=== PATIENT | female | born 1950 | race Caucasian/White ===

== ENCOUNTER 2016-12-19 02:11 | Emergency (ER) | payer OTHER, SELFPAY ==
[2016-12-19 02:21] VITALS: PULSE 101; RESP 20; TEMP 98.1; O2SAT 98
--- NOTE | 2016-12-19 02:25 | C.PDOC ---
History Of Present Illness Patient presents to the emergency room with complaints of mid-epigastric pain, nausea, and vomiting after eating at 5pm. Patient describes the pain as a dull, aching, and throbbing sensation. Patient denies fever, chills, diarrhea, or any other complaints. Time Seen by Provider: 12/19/16 02:24 Chief Complaint (Nursing): Abdominal Pain History Per: Patient History/Exam Limitations: no limitations Onset/Duration Of Symptoms: Hrs (9) Current Symptoms Are (Timing): Still Present Context: Food Severity: Moderate Location Of Pain/Discomfort: Epigastric Radiation Of Pain To:: None Quality Of Discomfort: Dull, Aching, Stabbing Associated Symptoms: Nausea, Vomiting. denies: Fever, Chills, Diarrhea Exacerbating Factors: None Alleviating Factors: None Recent travel outside of the [place]: No Past Medical History Reviewed: Historical Data, Nursing Documentation, Vital Signs Vital Signs: Last Vital Signs Temp 98.1 F 12/19/16 02:19 Pulse 101 H 12/19/16 02:19 Resp 20 12/19/16 02:19 BP 153/91 H 12/19/16 02:19 Pulse Ox 98 12/19/16 02:33 - Medical History PMH: HTN Family History: States: No Known Family Hx - Social History Hx Tobacco Use: No Hx Alcohol Use: No Hx Substance Use: No - Immunization History Hx Tetanus Toxoid Vaccination: No Hx Influenza Vaccination: No Hx Pneumococcal Vaccination: No Review Of Systems Constitutional: Negative for: Fever, Chills Gastrointestinal: Positive for: Nausea, Vomiting, Abdominal Pain (Mid-epigastric ). Negative for: Diarrhea Physical Exam - Physical Exam Appears: Non-toxic Skin: Warm, Dry Cardiovascular: Rhythm Regular Respiratory: No Rales, No Rhonchi, No Wheezing Gastrointestinal/Abdominal: Soft, Tenderness (Mid-epigastric tenderness), No Guarding, No Rebound Extremity: Normal ROM, No Tenderness Neurological/Psych: Oriented x3, Normal Speech ED Course And Treatment - Laboratory Results Result Diagrams: 12/19/16 02:37 12/19/16 02:37 O2 Sat by Pulse Oximetry: 98 Medical Decision Making Medical Decision Making: Upon provider reevaluation patient is feeling better, is medically stable, and requires no further treatment in the ED at this time. Patient will be discharged home with Rx for zofran . Counseling was provided and all questions were answered regarding diagnosis and need for follow up with dr andre. There is agreement to discharge plan. Return if symptoms persist or worsen. Disposition Counseled Patient/Family Regarding: Studies Performed, Diagnosis, Need For Followup, Rx Given - Disposition Referrals: Peter Waters [Staff Provider] - Disposition: HOME/ ROUTINE Disposition Time: 02:25 Condition: FAIR Prescriptions: Ondansetron ODT [Zofran ODT] 1 odt PO BID PRN #10 odt PRN Reason: Nausea/Vomiting Instructions: Abdominal Pain (ED), Gas and Bloating (ED) Print Language: KAZAKH - Clinical Impression Clinical Impression: Abdominal pain, Nausea, Food poisoning - Scribe Statement The provider has reviewed the documentation as recorded by the Juancarlos Neri Provider Scribe Attestation: All medical record entries made by the Juancarlos were at my direction and personally dictated by me. I have reviewed the chart and agree that the record accurately reflects my personal performance of the history, physical exam, medical decision making, and the department course for this patient. I have also personally directed, reviewed, and agree with the discharge instructions and disposition.
[2016-12-19] MEDS ORDERED: Sodium Chloride 0.9% 1,000 ML IV ONE (02:27)
[2016-12-19 02:40] LABS: BASO # 0.1 K/uL (0.0-0.2); BASO % 1.1 % (0.0-2.0); EOS # 0.1 K/uL (0.0-0.7); EOS % 1.3 % (0.0-4.0); HEMATOCRIT 40.7 % (34.0-47.0); LYMPH # 2.4 K/uL (1.0-4.3); MEAN CELL VOLUME 87.6 fL (81.0-99.0); MEAN CORPUSCULAR HEMOGLOBIN 28.4 pg (27.0-31.0); MEAN CORPUSCULAR HGB CONC 32.4 g/dL (33.0-37.0); MEAN PLATELET VOLUME 8.3 fL (7.2-11.7); MONO # 0.6 K/uL (0.0-0.8); MONO % 8.1 % (0.0-10.0); RED CELL DISTRIBUTION WIDTH 12.7 % (11.5-14.5); WHITE BLOOD COUNT 7.1 K/uL (4.8-10.8)
[2016-12-19 02:55] LABS: INR 0.9
[2016-12-19 02:58] LABS: CHLORIDE 104 mmol/L (98-107); SODIUM 142 mmol/L (132-148)
[2016-12-19 02:59] LABS: POTASSIUM 3.9 mmol/L (3.6-5.2)
[2016-12-19 02:59] LABS: RBC URINE 7 /hpf (0-3); URINE BILIRUBIN NEGATIVE (NEGATIVE); URINE BLOOD NEGATIVE (NEGATIVE); URINE COLOR Yellow (YELLOW); URINE GLUCOSE (UA) NORMAL (Normal); URINE KETONE NEGATIVE (NEGATIVE); URINE PROTEIN NEGATIVE (NEGATIVE); URINE UROBILINOGEN NORMAL mg/dL (0.2-1.0); WBC URINE 6 /hpf (0-5)
[2016-12-19 03:01] LABS: URINE LEUKOCYTE ESTERASE 1+ Leu/uL (Negative)
[2016-12-19 03:01] LABS: ALB/GLOB RATIO 1.5 (1.0-2.1); ALKALINE PHOSPHATASE 81 U/L (38-126); ALT/SGPT 27 U/L (9-52); AST/SGOT 23 U/L (14-36); BILIRUBIN,TOTAL 0.4 mg/dL (0.2-1.3); BLOOD UREA NITROGEN 15 mg/dL (7-17); CARBON DIOXIDE 28 mmol/L (22-30); GFR AFRICAN-AMERICAN > 60; GLUCOSE,RANDOM 111 mg/dL (65-105); TOTAL PROTEIN 6.4 g/dL (6.3-8.3)
[2016-12-19 03:02] LABS: CALCIUM 8.4 mg/dl (8.6-10.4)
[2016-12-19 04:50] VITALS: BP 134/70
== END 2016-12-19 04:49 | disposition home or self-care (01) ==
LOC: C.ER 02:11
DX: T62.91XA Toxic effect of unspecified noxious substance eaten as food, accidental (unintentional), initial encounter (principal); R11.2 Nausea with vomiting, unspecified; R10.13 Epigastric pain; Y92.9 Unspecified place or not applicable
CPT/HCPCS: 80053; 81001; 83690; 85025; 85610; 85730; 96374; 96375; 99284; J1885; J2405; J7040

== ENCOUNTER 2017-03-27 19:33 | Emergency (ER) | payer OTHER ==
[2017-03-27 19:48] VITALS: TEMP 97.5
[2017-03-27] MEDS ORDERED: Sodium Chloride 0.9% 1,000 ML IV ONE (19:55)
--- NOTE | 2017-03-27 19:57 | C.PDOC ---
History Of Present Illness 66 year old female with a Hx of anxiety who presents to the ER with a complaint of persistent anterior chest wall pain since 15:00. Denies SOB, nausea, or vomiting. Chief Complaint (Nursing): Chest Pain History Per: Patient History/Exam Limitations: no limitations Onset/Duration Of Symptoms: Hrs, Persistent Current Symptoms Are (Timing): Still Present Associated Symptoms: denies: Nausea, Dyspnea, Diaphoresis Modifying Factors: None Exacerbating Factors: None Alleviating Factors: None Recent travel outside of the [place]: No Past Medical History Reviewed: Historical Data, Nursing Documentation, Vital Signs Vital Signs: Last Vital Signs Temp 97.5 F L 03/27/17 19:44 Pulse 77 03/27/17 19:44 Resp 14 03/27/17 19:44 BP 157/78 H 03/27/17 19:44 Pulse Ox 100 03/27/17 21:40 - Medical History PMH: HTN Surgical History: No Surg Hx Family History: States: Unknown Family Hx - Social History Hx Tobacco Use: No Hx Alcohol Use: No Hx Substance Use: No - Immunization History Hx Tetanus Toxoid Vaccination: No Hx Influenza Vaccination: No Hx Pneumococcal Vaccination: No Review Of Systems Constitutional: Negative for: Fever, Chills Cardiovascular: Positive for: Chest Pain (Anterior wall) Respiratory: Negative for: Shortness of Breath Gastrointestinal: Negative for: Nausea, Vomiting Physical Exam - Physical Exam Appears: Non-toxic, No Acute Distress Skin: Normal Color, Warm, Dry Head: Atraumatic, Normacephalic Oral Mucosa: Moist Chest: Symmetrical, No Tenderness Cardiovascular: Rhythm Regular, No Murmur Respiratory: Normal Breath Sounds, No Rales, No Rhonchi, No Wheezing Gastrointestinal/Abdominal: Soft, No Tenderness Neurological/Psych: Oriented x3, Normal Speech, Normal Cognition ED Course And Treatment - Laboratory Results Result Diagrams: 03/27/17 20:14 03/27/17 20:14 ECG: Interpreted By Me, Viewed By Me ECG Rhythm: Sinus Rhythm ECG Interpretation: No Acute Changes Interpretation Of ECG: NSR, IRBBB, no acute change, borderline tracings Rate From EC O2 Sat by Pulse Oximetry: 100 Pulse Ox Interpretation: Normal - Radiology CXR: Interpreted by Me CXR Interpretation: Yes: No Acute Disease, Other (normal chest film). No: Infiltrates Progress Note: EKG, blood work, and CXR ordered. Ativan and IV fluids administered. Disposition Counseled Patient/Family Regarding: Diagnosis - Disposition Referrals: Peter Waters [Staff Provider] - Disposition: HOME/ ROUTINE Disposition Time: 21:49 Condition: STABLE Prescriptions: ALPRAZolam HALF TABLET [Xanax HALF TABLET] 0.125 mg PO TID #7 tab Instructions: Noncardiac Chest Pain (ED), Anxiety (ED) Forms: [employer] (Zimbabwean), Gen Discharge Inst Emirati Print Language: VIETNAMESE - POA Present On Arrival: None - Clinical Impression Clinical Impression: Non-cardiac chest pain, Anxiety - Scribe Statement The provider has reviewed the documentation as recorded by the Scribjosé miguel Lima All medical record entries made by the Christophibjosé miguel were at my direction and personally dictated by me. I have reviewed the chart and agree that the record accurately reflects my personal performance of the history, physical exam, medical decision making, and the department course for this patient. I have also personally directed, reviewed, and agree with the discharge instructions and disposition.
[2017-03-27 20:28] LABS: BASO % 0.6 % (0.0-2.0); EOS # 0.1 K/uL (0.0-0.7); EOS % 0.7 % (0.0-4.0); HEMATOCRIT 44.1 % (34.0-47.0); LYMPH # 2.3 K/uL (1.0-4.3); LYMPH % 29.5 % (20.0-40.0); MEAN CELL VOLUME 87.8 fL (81.0-99.0); MEAN CORPUSCULAR HEMOGLOBIN 29.3 pg (27.0-31.0); MEAN CORPUSCULAR HGB CONC 33.4 g/dL (33.0-37.0); MEAN PLATELET VOLUME 8.7 fL (7.2-11.7); MONO # 0.5 K/uL (0.0-0.8); MONO % 6.9 % (0.0-10.0); RED CELL DISTRIBUTION WIDTH 13.1 % (11.5-14.5); WHITE BLOOD COUNT 7.9 K/uL (4.8-10.8)
[2017-03-27 20:39] LABS: CHLORIDE 98 mmol/L (98-107); POTASSIUM 3.6 mmol/L (3.6-5.2); SODIUM 140 mmol/L (132-148)
[2017-03-27 20:41] LABS: BILIRUBIN,TOTAL 0.8 mg/dL (0.2-1.3); GFR AFRICAN-AMERICAN > 60
[2017-03-27 20:42] LABS: ALB/GLOB RATIO 1.4 (1.0-2.1); ALKALINE PHOSPHATASE 78 U/L (38-126); ALT/SGPT 30 U/L (9-52); AST/SGOT 23 U/L (14-36); BLOOD UREA NITROGEN 9 mg/dL (7-17); CARBON DIOXIDE 25 mmol/L (22-30); GLUCOSE,RANDOM 96 mg/dL (65-105)
[2017-03-27 20:43] LABS: CALCIUM 9.3 mg/dl (8.6-10.4)
[2017-03-27 22:33] VITALS: BP 142/78; PULSE 82; RESP 78; O2SAT 16
--- NOTE | 2017-03-28 09:56 | RAD ---
HISTORY: COMPARISON: No prior. TECHNIQUE: Chest PA and lateral FINDINGS: LINES AND TUBES: There is mild pulmonary hyperinflation and peribronchial thickening. No lobar pneumonia. LUNG AND PLEURA: Lungs are clear. There are no pleural effusions or pneumothorax. HEART AND MEDIASTINUM: The heart is not enlarged. The hilar and mediastinal contours are within normal limits. SKELETAL STRUCTURES: The bony structures are within normal limits for the patient's age. VISUALIZED UPPER ABDOMEN: Normal. OTHER FINDINGS: None. IMPRESSION: No active pulmonary disease. COPD.
--- NOTE | 2017-04-02 11:18 | CARD ---
APPROVED REPORT EKG Measurement Heart [id number] <Conclusion> Normal sinus rhythm Possible Left atrial enlargement Borderline ECG
== END 2017-03-27 21:55 | disposition home or self-care (01) ==
LOC: C.ER 19:33
DX: R07.89 Other chest pain (principal); F41.9 Anxiety disorder, unspecified
CPT/HCPCS: 71020; 80053; 84484; 85025; 85378; 99285; J7040

== ENCOUNTER 2017-03-28 16:26 | Emergency (ER) | payer OTHER ==
[2017-03-28 16:45] VITALS: BP 141/84; RESP 18; TEMP 97.9; O2SAT 98
[2017-03-28 17:24] VITALS: PULSE 75
--- NOTE | 2017-03-28 18:15 | C.PDOC ---
History Of Present Illness 66 year old female presents to the emergency department with complaints of vague left chest discomfort but is asymptomatic on arrival. Patient was seen in the emergency department yesterday with the same complaint and had a normal cardiac work up. She notes use of anxiety medications with improvement of symptoms. Time Seen by Provider: 03/28/17 18:07 Chief Complaint (Nursing): Chest Pain History Per: Patient Onset/Duration Of Symptoms: Intermittent Episodes (of left chest discomfort, asymptomatic on arrival ) Current Symptoms Are (Timing): Still Present Associated Symptoms: denies: Nausea, Dyspnea, Diaphoresis, Syncope Recent travel outside of the [place]: No Past Medical History Reviewed: Historical Data, Nursing Documentation, Vital Signs Vital Signs: Last Vital Signs Temp 97.9 F 03/28/17 16:45 Pulse 75 03/28/17 17:22 Resp 18 03/28/17 16:45 BP 141/84 03/28/17 16:45 Pulse Ox 98 03/28/17 20:44 - Medical History PMH: HTN, Hypercholesterolemia Family History: States: Unknown Family Hx - Social History Hx Tobacco Use: No Hx Alcohol Use: No Hx Substance Use: No - Immunization History Hx Tetanus Toxoid Vaccination: No Hx Influenza Vaccination: No Hx Pneumococcal Vaccination: No Review Of Systems Constitutional: Negative for: Fever, Chills Cardiovascular: Positive for: Other (vague left chest discomfort ). Negative for: Palpitations Respiratory: Negative for: Cough, Shortness of Breath Gastrointestinal: Negative for: Nausea, Vomiting, Abdominal Pain, Diarrhea Physical Exam - Physical Exam Appears: Non-toxic, No Acute Distress, Other (Patient is calm and cooperative ) Skin: Warm, Dry Head: Atraumatic Eye(s): bilateral: Normal Inspection, PERRL, EOMI Oral Mucosa: Moist Neck: Supple Chest: Symmetrical, No Deformity Cardiovascular: Rhythm Regular Respiratory: Normal Breath Sounds, No Rhonchi, No Wheezing Gastrointestinal/Abdominal: Soft, No Tenderness, No Distention, No Guarding, No Rebound Neurological/Psych: Oriented x3 ED Course And Treatment ECG Rhythm: Sinus Rhythm (normal sinus rhythm 75) O2 Sat by Pulse Oximetry: 98 (room air ) Medical Decision Making Medical Decision Making: again presents for same c/o as last night. asymptomatic today Wants a "pain medicine" for the occasional L chest discomforts defers repeat w/u w informed consent as last night's w/u neg and pt asymptomatic prob anxiety vs mild costochondritic L chest discomfort, vs GERD Disposition Doctor Will See Patient In The: Office Counseled Patient/Family Regarding: Studies Performed, Diagnosis - Disposition [facility]errals: [facility] [Outside] [facility] Peter Waters [Staff Provider] - Disposition: HOME/ ROUTINE Disposition Time: 18:14 Condition: GOOD Additional Instructions: willie Motrin/ibuprofeno 400 mg cada 6 horas joey necessario para irene jose del pecho Willie pepcid 20 mg en la noche para bajar el acides del estomago en el petros de reflujo acidez Pide que Dr. Waters te cody por un evaluacion del Gastroenterologo. Anxiedad: Sigue con Dr. Waters referencia a servicios psychologicos joey necessarios. Instructions: Costochondritis (ED), Gastroesophageal Reflux Disease (ED), Anxiety (ED) Forms: [employer] (Ghanaian) Print Language: SWEDISH - Clinical Impression Clinical Impression: Chest discomfort - Scribe Statement The provider has reviewed the documentation as recorded by the Scribe Anitra White All medical record entries made by the Scribe were at my direction and personally dictated by me. I have reviewed the chart and agree that the record accurately reflects my personal performance of the history, physical exam, medical decision making, and the department course for this patient. I have also personally directed, reviewed, and agree with the discharge instructions and disposition.
--- NOTE | 2017-04-01 21:47 | CARD ---
APPROVED REPORT EKG Measurement Heart [id number] [id number] <Conclusion> Normal sinus rhythm Normal ECG
== END 2017-03-28 18:36 | disposition home or self-care (01) ==
LOC: C.ER 16:26
DX: R07.89 Other chest pain (principal)

== ENCOUNTER 2017-06-10 17:11 | Emergency (ER) | payer MEDICAID, OTHER ==
--- NOTE | 2017-06-10 18:07 | C.PDOC ---
History Of Present Illness 66 year old female, whose PMHx includes HTN, presents to the ED complaining of a ringing sensation in her left ear which began earlier today. Patient states she was measuring her blood pressure at home and noted it was higher than normal. Afterwards, patient started to hear a ringing inside her left ear. Patient is currently taking Losartan Potassium 25mg to control her high blood pressure. Denies throat swelling, cough, known sick contacts. Time Seen by Provider: 06/10/17 17:29 Chief Complaint (Nursing): Medical Clearance History Per: Patient History/Exam Limitations: no limitations Onset/Duration Of Symptoms: Hrs, Days Current Symptoms Are (Timing): Still Present Recent travel outside of the [place]: No Additional History Per: Patient Past Medical History Reviewed: Historical Data, Nursing Documentation, Vital Signs Vital Signs: Last Vital Signs Temp 98.0 F 06/10/17 18:08 Pulse 63 06/10/17 18:08 Resp 18 06/10/17 18:08 BP 146/84 06/10/17 18:08 Pulse Ox 99 06/10/17 20:26 - Medical History PMH: HTN, Hypercholesterolemia Surgical History: No Surg Hx Family History: States: Unknown Family Hx - Social History Hx Tobacco Use: No Hx Alcohol Use: No Hx Substance Use: No - Immunization History Hx Tetanus Toxoid Vaccination: No Hx Influenza Vaccination: No Hx Pneumococcal Vaccination: No Review Of Systems Constitutional: Negative for: Fever ENT: Positive for: Other (Ear ringing). Negative for: Throat Pain, Throat Swelling Cardiovascular: Negative for: Chest Pain, Palpitations Physical Exam - Physical Exam Appears: Well, Non-toxic, No Acute Distress Skin: Normal Color, Warm, Dry, No Rash Head: Atraumatic, Normacephalic Eye(s): bilateral: Normal Inspection, PERRL, EOMI Ear(s): Left: TM Obscured By Wax (partial obstruction, TM otherwise normal), Bilateral: Normal (No tenderness with pulling of pinna or tragus) Nose: Normal, No Discharge Oral Mucosa: Moist Throat: Normal, No Erythema, No Exudate Neck: Normal, Supple Lymphatic: Normal Exam Cardiovascular: Rhythm Regular, No Murmur Respiratory: Normal Breath Sounds, No Accessory Muscle Use Extremity: Normal ROM, No Calf Tenderness, Capillary Refill (less than 2 seconds ), No Swelling Neurological/Psych: Oriented x3, Normal Speech, Normal Cognition Gait: Steady ED Course And Treatment O2 Sat by Pulse Oximetry: 99 (Room air) Pulse Ox Interpretation: Normal Medical Decision Making Medical Decision Making: BP improved and there is no signs of abnormalities in the ear. Patient was instructed to follow up with the ENT within 2-3 days. return if worsened. Disposition - Disposition Referrals: [facility] [Outside] Disposition: HOME/ ROUTINE Disposition Time: 18:08 Condition: GOOD Additional Instructions: Follow up with the medical doctor within 1-2 days. Return if worsened. Prescriptions: Carbamide Peroxide [Debrox Ear Drops] 5 drop AD BID #1 bottle Instructions: Hypertension (ED), Tinnitus (ED) Forms: [employer] (Rwandan) Print Language: BHUTANESE - Clinical Impression Clinical Impression: Hypertension, Tinnitus - PA / FLOW COORDINATOR / Resident Statement MD/DO has reviewed & agrees with the documentation as recorded. - Scribe Statement The provider has reviewed the documentation as recorded by the Scribe Jagjit Orona All medical record entries made by the Scribe were at my direction and personally dictated by me. I have reviewed the chart and agree that the record accurately reflects my personal performance of the history, physical exam, medical decision making, and the department course for this patient. I have also personally directed, reviewed, and agree with the discharge instructions and disposition.
[2017-06-10 18:09] VITALS: BP 146/84; PULSE 63; RESP 18; TEMP 98
[2017-06-10 18:10] VITALS: O2SAT 99
== END 2017-06-10 18:32 | disposition home or self-care (01) ==
LOC: C.ER 17:11
DX: I10 Essential (primary) hypertension (principal); H93.12 Tinnitus, left ear

== ENCOUNTER 2018-03-17 13:45 | Inpatient (IN) | payer MEDICARE, OTHER ==
[2018-03-17] MEDS ORDERED: Sodium Chloride 0.9% 1,000 ML IV ONE (15:58)
[2018-03-17] MEDS ORDERED: Sodium Chloride 0.9% 1,000 ML ONE (16:10)
--- NOTE | 2018-03-17 16:11 | C.PDOC ---
History Of Present Illness 67yo female, comes to ER for evaluation of epigastric pain x 2 weeks, worse with eating. She reports associated nausea and loss of appetite as well. She denies any fever, chills, vomiting or radiation of pain. Patient states she saw her PMD and was referred to [facility] for an outpatient CT abdomen/ pelvis which indicated a distended gallbladder with multiple gallstones and small surrounding inflammatory changes. Patient was referred to ER by PMD for surgical evaluation. Time Seen by Provider: 03/17/18 15:48 Chief Complaint (Nursing): Abdominal Pain History Per: Patient History/Exam Limitations: no limitations Onset/Duration Of Symptoms: Days Current Symptoms Are (Timing): Still Present Location Of Pain/Discomfort: Epigastric Quality Of Discomfort: "Pain" Past Medical History Reviewed: Historical Data, Nursing Documentation, Vital Signs Vital Signs: Last Vital Signs Temp 98.8 F 03/17/18 13:57 Pulse 88 03/17/18 13:57 Resp 18 03/17/18 13:57 BP 125/82 03/17/18 13:57 Pulse Ox 97 03/17/18 16:34 - Medical History PMH: HTN, Hypercholesterolemia Surgical History: No Surg Hx Family History: States: Unknown Family Hx - Social History Hx Tobacco Use: No Hx Alcohol Use: No Hx Substance Use: No - Immunization History Hx Tetanus Toxoid Vaccination: No Hx Influenza Vaccination: No Hx Pneumococcal Vaccination: No Review Of Systems Except As Marked, All Systems Reviewed And Found Negative. Constitutional: Negative for: Fever, Chills Cardiovascular: Negative for: Chest Pain Respiratory: Negative for: Shortness of Breath Gastrointestinal: Positive for: Nausea, Abdominal Pain. Negative for: Vomiting Physical Exam - Physical Exam Appears: Non-toxic, No Acute Distress Skin: Normal Color, Warm, Dry Head: Atraumatic, Normacephalic Eye(s): bilateral: Normal Inspection Neck: Normal ROM, Supple Chest: Symmetrical Cardiovascular: Rhythm Regular Respiratory: Normal Breath Sounds Gastrointestinal/Abdominal: Soft, Tenderness (epigastric), No Mass, No Guarding , No Rebound Back: Normal Inspection Extremity: Normal ROM Neurological/Psych: Oriented x3 ED Course And Treatment - Laboratory Results Result Diagrams: 03/17/18 16:21 03/17/18 16:21 Lab Interpretation: Normal O2 Sat by Pulse Oximetry: 97 (RA) Pulse Ox Interpretation: Normal - CT Scan/US Ultrasound abdomen Other Rad Studies (CT/US): Read By Radiologist, Radiology Report Reviewed CT/US Interpretation: Accession No. : [id number]. Patient Name / ID : AKILA EVANS / [id number]. Exam Date : 03/17/2018 17:15:21 ( Approved ). Study Comment : Sex / Age : F / 67Y. Creator : Jordi Alvarado MD. Dictator : Jordi Alvarado MD. Trial Lawyer : Credit Balance Specialist : Jordi Alvarado MD. Approver2 : Report Date : 03/17/2018 17:48:55. My Comment : . Date of service: 03/17/2018. HISTORY: epigastric pain r/o cholecystitis. COMPARISON: None. TECHNIQUE: Sonographic evaluation of the abdomen. FINDINGS : LIVER: Measures 16.3 cm. Patent portal vein. Portal venous flow: Hepatopetal. Unremarkable echogenicity of the liver parenchyma. No mass. No intrahepatic bile duct dilatation. GALLBLADDER: Cholelithiasis. Sludge, gallbladder wall edema noted. Positive sonographic Clifford's sign. COMMON BILE DUCT: Measures 6.0 mm. No stones. No dilatation. PANCREAS: Unremarkable as visualized. No mass. No ductal dilatation. RIGHT KIDNEY: Measures 3.95 x 8.8cm. Normal echogenicity. Mild distention of the right collecting system. . Midpole cyst 1.9 x 2.1 cm. LEFT KIDNEY: Measures 5.7 x 10.7cm. Moderate hydronephrosis. SPLEEN: Normal in size and contour. No mass. AORTA: No aneurysmal dilatation. IVC: Unremarkable. OTHER FINDINGS: None. IMPRESSION : Cholelithiasis, ultrasound manifestations of acute cholecystitis. Progress Note: Labs, Urinalysis, and US abdomen ordered. Patient given IV Fluids. Reevaluation Time: 18:16 Reassessment Condition: Unchanged - Physician Consult Information Time Consulting Physician Contacted: 18:13 Outcome Of Conversation: Case discussed with Dr Martinez and Dr Pena. Patient to be admitted for acute cholethiasis with cholecystitis. Disposition - Disposition Disposition: HOSPITALIZED Disposition Time: 18:17 Condition: STABLE - POA Present On Arrival: None - Clinical Impression Clinical Impression: Acute cholecystitis - Scribe Statement The provider has reviewed the documentation as recorded by the Juancarlos Flynn Provider Attestation: All medical record entries made by the Juancarlos were at my direction and personally dictated by me. I have reviewed the chart and agree that the record accurately reflects my personal performance of the history, physical exam, medical decision making, and the department course for this patient. I have also personally directed, reviewed, and agree with the discharge instructions and disposition.
[2018-03-17 16:26] LABS: BASO % 0.2 % (0.0-2.0); EOS % 0.1 % (0.0-4.0); HEMOGLOBIN 14.4 g/dL (11.0-16.0); LYMPH # 1.1 K/uL (1.0-4.3); MEAN CELL VOLUME 87.8 fL (81.0-99.0); MEAN CORPUSCULAR HEMOGLOBIN 29.4 pg (27.0-31.0); MEAN CORPUSCULAR HGB CONC 33.4 g/dL (33.0-37.0); MEAN PLATELET VOLUME 8.1 fL (7.2-11.7); MONO # 0.8 K/uL (0.0-0.8); MONO % 8.9 % (0.0-10.0); NEUT # 7.5 K/uL (1.8-7.0); NEUT % 78.8 % (50.0-75.0); RBC 4.89 Mil/uL (3.80-5.20); RED CELL DISTRIBUTION WIDTH 12.9 % (11.5-14.5); WHITE BLOOD COUNT 9.6 K/uL (4.8-10.8)
[2018-03-17 16:38] LABS: ALB/GLOB RATIO 1.2 (1.0-2.1); ALBUMIN 3.9 g/dL (3.5-5.0); ALT/SGPT 27 U/L (9-52); AST/SGOT 23 U/L (14-36); BLOOD UREA NITROGEN 14 mg/dL (7-17); CALCIUM 9.4 mg/dl (8.6-10.4); GFR AFRICAN-AMERICAN > 60; GFR NON-AFRICAN AMERICAN > 60; LIPASE 88 U/L (23-300)
[2018-03-17 16:54] LABS: SQUAMOUS EPITHIAL 2 /hpf (0-5); URINE BACTERIA RARE (<OCC); URINE BILIRUBIN NEGATIVE (NEGATIVE); URINE BLOOD NEGATIVE (NEGATIVE); URINE CLARITY Hazy (Clear); URINE COLOR Yellow (YELLOW); URINE GLUCOSE (UA) NORMAL (Normal); URINE LEUKOCYTE ESTERASE 1+ Leu/uL (Negative); URINE PROTEIN 1+ mg/dL (NEGATIVE)
--- NOTE | 2018-03-17 17:50 | US ---
Date of service: 03/17/2018 HISTORY: epigastric pain r/o cholecystitis COMPARISON: None. TECHNIQUE: Sonographic evaluation of the abdomen. FINDINGS: LIVER: Measures 16.3 cm. Patent portal vein. Portal venous flow: Hepatopetal. Unremarkable echogenicity of the liver parenchyma. No mass. No intrahepatic bile duct dilatation. GALLBLADDER: Cholelithiasis. Sludge, gallbladder wall edema noted. Positive sonographic Clifford's sign. COMMON BILE DUCT: Measures 6.0 mm. No stones. No dilatation. PANCREAS: Unremarkable as visualized. No mass. No ductal dilatation. RIGHT KIDNEY: Measures 3.95 x 8.8cm. Normal echogenicity. Mild distention of the right collecting system. . Midpole cyst 1.9 x 2.1 cm. LEFT KIDNEY: Measures 5.7 x 10.7cm. Moderate hydronephrosis. SPLEEN: Normal in size and contour. No mass. AORTA: No aneurysmal dilatation. IVC: Unremarkable. OTHER FINDINGS: None. IMPRESSION: Cholelithiasis, ultrasound manifestations of acute cholecystitis.
[2018-03-17] MEDS ORDERED: HYDROmorphone 0.5 mg/0.5 ml ISec IVP PRN (19:27)
[2018-03-17] MEDS: Piperacill/Tazo 3.375gm in Dex 3.375 GM/50 ML BAG IVPB SCH (19:45)
[2018-03-17] MEDS: metroNIDAZOLE IV 500 mg/100 ml 500 MG/100 ML BAG IVPB SCH (20:30)
--- NOTE | 2018-03-17 21:20 | CP.PCM.CON ---
<Farooq Cuenca - Last Filed: 03/17/18 21:17> History of Present Illness - History of Present Illness History of Present Illness: General Surgery Consult note for Dr. Pena 67F with PMHx of HTN and hypercholesterolemia presenting to the [facility] ED for non-radiating constant, dull R-sided abdominal pain that began 2 weeks ago. Her symptoms emerged after eating a meal and she notes her pain worsens after eating greasy foods. Her symptoms have progressively worsened. She was seen by her PCP the next day and a CT scan was ordered revealing presence of cholelithiasis. She was also prescribed Naproxen which helps with the pain. She denies N/V/D, fever, chills, or night sweats. She continues to pass gas but has not had a bowel movement since yesterday morning. PMH: HTN, hypercholesterolemia PSH: Hysterectomy Past Hospitalizations: none Allergies: NKDA Soc: denies of t/a/d use Review of Systems - Constitutional Constitutional: absent: Chills, Fever, Weakness - EENT Eyes: absent: Blurred Vision, Change in Vision Ears: absent: Ear Discharge, Ear Pain Nose/Mouth/Throat: absent: Nasal Congestion, Nasal Discharge - Cardiovascular Cardiovascular: absent: Chest Pain, Dyspnea - Respiratory Respiratory: absent: Cough, Dyspnea - Gastrointestinal Gastrointestinal: Abdominal Pain. absent: Bloating, Diarrhea, Nausea, Vomiting - Genitourinary Genitourinary: absent: Difficulty Urinating, Dysuria - Musculoskeletal Musculoskeletal: absent: Arthralgias, Atrophy - Integumentary Integumentary: absent: Bleeding Lesions, Changing Lesions - Neurological Neurological: absent: Abnormal Hearing, Abnormal Movements - Psychiatric Psychiatric: absent: Anxiety, Depression Past Patient History - Past Medical History & Family History Past Medical History?: Yes - Past Social History Smoking Status: Never Smoked - CARDIAC Hx Hypercholesterolemia: Yes Hx Hypertension: Yes - PULMONARY Hx Respiratory Disorders: No - NEUROLOGICAL Hx Neurological Disorder: No - HEENT Hx HEENT Problems: No - RENAL Hx Chronic Kidney Disease: No - ENDOCRINE/METABOLIC Hx Endocrine Disorders: No - HEMATOLOGICAL/ONCOLOGICAL Hx Blood Disorders: No - INTEGUMENTARY Hx Dermatological Problems: No - MUSCULOSKELETAL/RHEUMATOLOGICAL Hx Musculoskeletal Disorders: No Hx Falls: No - GASTROINTESTINAL Hx Gastrointestinal Disorders: No - GENITOURINARY/GYNECOLOGICAL Hx Genitourinary Disorders: No - PSYCHIATRIC Hx Psychophysiologic Disorder: No Hx Substance Use: No - SURGICAL HISTORY Hx Hysterectomy: Yes - ANESTHESIA Hx Anesthesia: Yes Hx Anesthesia Reactions: No Hx Malignant Hyperthermia: No Has any member of the family had a problem w/ anesthesia?: No Meds Allergies/Adverse Reactions: Allergies Allergy/AdvReac Type Severity Reaction Status Date / Time No Known Allergies Allergy Verified 03/17/18 14:00 - Medications Medications: Current Medications Hydromorphone HCl (Dilaudid) 0.5 mg IVP Q6H PRN PRN Reason: Pain, moderate (4-7) Piperacillin Sod/Tazobactam Sod (Zosyn 3.375 Gm Iv Premix) 3.375 gm in 50 mls @ 100 mls/hr IVPB Q6H ANASTACIA PRN Reason: Protocol Metronidazole (Flagyl) 500 mg in 100 mls @ 100 mls/hr IVPB Q8H ANASTACIA PRN Reason: Protocol Ondansetron HCl (Zofran Inj) 4 mg IVP DAILY@ONCE PRN PRN Reason: Nausea/Vomiting Pneumococcal Polyvalent Vaccine (Pneumovax 23 Vaccine) 0.5 ml IM .ONCE ONE Stop: 03/19/18 10:01 Physical Exam - Constitutional Appears: Well, Non-toxic, No Acute Distress - Head Exam Head Exam: ATRAUMATIC, NORMAL INSPECTION, NORMOCEPHALIC - Eye Exam Eye Exam: EOMI, Normal appearance - ENT Exam ENT Exam: Mucous Membranes Moist, Normal Exam - Respiratory Exam Respiratory Exam: Clear to Auscultation Bilateral, NORMAL BREATHING PATTERN - Cardiovascular Exam Cardiovascular Exam: Bradycardia, REGULAR RHYTHM, +S1, +S2 - GI/Abdominal Exam GI & Abdominal Exam: Normal Bowel Sounds, Soft, Tenderness. absent: Distended, Firm, Guarding, Rebound - Neurological Exam Neurological exam: Alert, Oriented x3 - Psychiatric Exam Psychiatric exam: Normal Affect, Normal Mood - Skin Skin Exam: Dry, Intact, Normal Color, Warm Results - Vital Signs Recent Vital Signs: Last Vital Signs Temp 99.7 F H 03/17/18 21:15 Pulse 88 03/17/18 21:15 Resp 20 03/17/18 21:15 BP 127/79 03/17/18 21:15 Pulse Ox 96 03/17/18 21:15 - Labs Result Diagrams: 03/17/18 16:21 03/17/18 16:21 Labs: Laboratory Results - last 24 hr 03/17/18 03/17/18 03/17/18 16:21 16:21 16:35 WBC 9.6 RBC 4.89 Hgb 14.4 Hct 43.0 MCV 87.8 MCH 29.4 MCHC 33.4 RDW 12.9 Plt Count 227 MPV 8.1 Neut % (Auto) 78.8 H Lymph % (Auto) 12.0 L Gilliam % (Auto) 8.9 Eos % (Auto) 0.1 Baso % (Auto) 0.2 Neut # (Auto) 7.5 H Lymph # (Auto) 1.1 Gilliam # (Auto) 0.8 Eos # (Auto) 0.0 Baso # (Auto) 0.0 Sodium 141 Potassium 4.5 Chloride 101 Carbon Dioxide 27 Anion Gap 17 BUN 14 Creatinine 0.8 Est GFR ( Amer) > 60 Est GFR (Non-Af Amer) > 60 Random Glucose 101 Calcium 9.4 Total Bilirubin 0.9 AST 23 ALT 27 Alkaline Phosphatase 90 Total Protein 7.2 Albumin 3.9 Globulin 3.2 Albumin/Globulin Ratio 1.2 Lipase 88 Urine Color Yellow Urine Clarity Hazy Urine pH 5.0 Ur Specific [place] 1.028 Urine Protein 1+ H Urine Glucose (UA) Normal Urine Ketones 2+ H Urine Blood Negative Urine Nitrate Negative Urine Bilirubin Negative Urine Urobilinogen 2.0 H Ur Leukocyte Esterase 1+ H Urine WBC (Auto) 30 H Urine RBC (Auto) 6 H Ur Squamous Epith Cells 2 Urine Bacteria Rare Assessment & Plan - Assessment and Plan (Free Text) Assessment: 67F presenting to the ED w/ abdominal pain 2/2 acute cholecystitis evidenced by outpatient CT imaging and Abdomen US Plan: Started IV Abx Pain management HHD --> NPO past midnight when surgery date confirmed Anti-emetics AM labs further recs per Dr. Becky Cuenca PGY1 <Heath Pena - Last Filed: 03/21/18 19:24> Results - Vital Signs Recent Vital Signs: Last Vital Signs Temp 98.1 F 03/19/18 16:08 Pulse 87 03/19/18 16:08 Resp 20 03/19/18 16:08 BP 123/79 03/19/18 16:08 Pulse Ox 96 03/19/18 16:08 - Labs Result Diagrams: 03/19/18 11:09 07/20/18 11:05 Attending/Attestation - Attestation I have personally seen and examined this patient.: Yes I have fully participated in the care of the patient.: Yes I have reviewed all pertinent clinical information: Yes Notes (Text): Pt was seen and examined at bedside Agree with above note and assessment Pt with RUQ pain and tenderness Labs and radiology reviewed Ass : Acute Cholecystitis and Cholelithiasis with Leucocytosis Plan : OR for Lap Cholecystectomy possible Open Consent NPO, IVF IV antibiotics Medical clearance Plan d.w pt in detail Risk and benefit explained in detail.
[2018-03-18] MEDS: Piperacill/Tazo 3.375gm in Dex 3.375 GM/50 ML BAG IVPB SCH ×4 (02:04→19:00)
[2018-03-18] MEDS: metroNIDAZOLE IV 500 mg/100 ml 500 MG/100 ML BAG IVPB SCH ×3 (02:59→20:06)
--- NOTE | 2018-03-18 07:21 | CP.PCM.PN ---
<Bob Sequeira - Last Filed: 03/18/18 07:18> Subjective - Date & Time of Evaluation Date of Evaluation: 03/18/18 Time of Evaluation: 06:15 - Subjective Subjective: Patient seen and examined. No acute events over night. Denies fever/chills. Denies nausea/vomiting. Objective - Vital Signs/Intake and Output Vital Signs (last 24 hours): Temp Pulse Resp BP Pulse Ox 99.5 F 75 20 100/62 97 03/17/18 23:37 03/17/18 23:37 03/17/18 23:37 03/17/18 23:37 03/17/18 23:37 - Medications Medications: Current Medications Acetaminophen (Tylenol 325mg Tab) 650 mg PO Q6 PRN PRN Reason: Fever >100.4 F Last Admin: 03/17/18 22:21 Dose: 650 mg Aspirin (Ecotrin) 81 mg PO DAILY ANASTACIA Enoxaparin Sodium (Lovenox) 40 mg SC DAILY ANASTACIA Escitalopram Oxalate (Lexapro) 10 mg PO DAILY [facility] Hydromorphone HCl (Dilaudid) 0.5 mg IVP Q6H PRN PRN Reason: Pain, moderate (4-7) Piperacillin Sod/Tazobactam Sod (Zosyn 3.375 Gm Iv Premix) 3.375 gm in 50 mls @ 100 mls/hr IVPB Q6H ANASTACIA PRN Reason: Protocol Last Admin: 03/18/18 02:04 Dose: 100 mls/hr Metronidazole (Flagyl) 500 mg in 100 mls @ 100 mls/hr IVPB Q8H ANASTACIA PRN Reason: Protocol Last Admin: 03/18/18 02:59 Dose: 100 mls/hr Lactated Ringer's (Lactated Ringer's) 1,000 mls @ 100 mls/hr IV .Q10H ANASTACIA Losartan Potassium (Cozaar) 1 mg PO DAILY ANASTACIA [id number] Ethyl Esters (Lovaza) 1 gm PO BID ANASTACIA Ondansetron HCl (Zofran Inj) 4 mg IVP DAILY@ONCE PRN PRN Reason: Nausea/Vomiting Pneumococcal Polyvalent Vaccine (Pneumovax 23 Vaccine) 0.5 ml IM .ONCE ONE Stop: 03/19/18 10:01 Ranitidine HCl (Zantac Soln 5ml) 150 mg PO DAILY ANASTACIA Rosuvastatin Calcium (Crestor) 5 mg PO HS ANASTACIA - Labs Labs: 03/17/18 16:21 03/17/18 16:21 - Constitutional Appears: No Acute Distress - Head Exam Head Exam: NORMOCEPHALIC - Eye Exam Eye Exam: Normal appearance - Respiratory Exam Respiratory Exam: NORMAL BREATHING PATTERN - Cardiovascular Exam Cardiovascular Exam: +S1, +S2 - GI/Abdominal Exam GI & Abdominal Exam: Soft - Neurological Exam Neurological Exam: Alert, Awake, Oriented x3 - Skin Skin Exam: Dry, Intact, Warm Assessment and Plan - Assessment and Plan (Free Text) Assessment: 67F with acute cholecystitis Plan: NPO IVF ABx Anti-emetic/Analgesia prn SCDs Encourage ambulation Will plan for OR tomorrow 03/19 for cholecystectomy Further recs per Dr. Becky Aldana PGY3 <Heath Pena - Last Filed: 03/21/18 19:26> Objective - Vital Signs/Intake and Output Vital Signs (last 24 hours): Temp Pulse Resp BP Pulse Ox 98.1 F 87 20 123/79 96 03/19/18 16:08 03/19/18 16:08 03/19/18 16:08 03/19/18 16:08 03/19/18 16:08 - Labs Labs: 03/19/18 11:09 03/19/18 11:05 PT 12.7 SECONDS (9.7-12.2) H 03/18/18 12:59 INR 1.2 03/18/18 12:59 APTT 30 SECONDS (21-34) 03/18/18 12:59 Attending/Attestation - Attestation I have personally seen and examined this patient.: Yes I have fully participated in the care of the patient.: Yes I have reviewed all pertinent clinical information, including history, physical exam and plan: Yes Notes (Text): Pt was seen and examined at bedside Agree with above note and assessment Pt with Acute Cholecystitis and Cholelithiasis OR today for Lap Cholecystectomy possible Open Consent NPO, IVF Plan d.w pt in detail Risk and benefit explained in detail.
[2018-03-18 07:37] LABS: MEAN CORPUSCULAR HGB CONC 34.1 g/dL (33.0-37.0); MEAN PLATELET VOLUME 8.4 fL (7.2-11.7); RBC 4.34 Mil/uL (3.80-5.20); RED CELL DISTRIBUTION WIDTH 12.9 % (11.5-14.5); WHITE BLOOD COUNT 7.4 K/uL (4.8-10.8)
[2018-03-18] MEDS: Lactated Ringer's 1,000 ML IV SCH ×2 (08:00→19:12)
[2018-03-18 08:10] LABS: ALB/GLOB RATIO 1.2 (1.0-2.1); ALBUMIN 3.2 g/dL (3.5-5.0); ALT/SGPT 29 U/L (9-52); AST/SGOT 21 U/L (14-36); BLOOD UREA NITROGEN 13 mg/dL (7-17); CALCIUM 8.6 mg/dl (8.6-10.4); GFR AFRICAN-AMERICAN > 60; GFR NON-AFRICAN AMERICAN > 60
[2018-03-18] MEDS ORDERED: Losartan 12.5 MG TAB PO SCH (10:00)
[2018-03-18] MEDS ORDERED: Enoxaparin 40 mg Syringe SC SCH (10:00)
[2018-03-18] MEDS: Omega-3-Acid Ethyl Esters 1 GM Cap PO SCH ×2 (10:15→18:40)
[2018-03-18] MEDS: raNITIdine HCl 150 mg/10 ml Soln Cup PO SCH (10:15)
--- NOTE | 2018-03-18 12:59 | RAD ---
Date of service: 03/18/2018 HISTORY: pre-op COMPARISON: 03/27/2017 FINDINGS: LUNGS: No active pulmonary disease. PLEURA: No significant pleural effusion identified, no pneumothorax apparent. CARDIOVASCULAR: No radiographic findings to suggest acute or significant cardiovascular disease. OSSEOUS STRUCTURES: No significant abnormalities. VISUALIZED UPPER ABDOMEN: Normal. OTHER FINDINGS: None. IMPRESSION: No active disease. No significant interval change compared to the prior examination(s).
[2018-03-18 13:13] LABS: INR 1.2; PROTHROMBIN TIME 12.7 SECONDS (9.7-12.2)
[2018-03-18] MEDS: Losartan 12.5 MG TAB PO SCH (13:20)
[2018-03-18] MEDS ORDERED: Midazolam 2 MG/2 ML VIAL ONE (13:46)
[2018-03-18] MEDS ORDERED: Propofol 10 mg/ml Inj (20 ML) ONE (13:46)
[2018-03-18] MEDS ORDERED: Bupivacaine 0.25% 20 ML INJ IJ ONE (14:10)
[2018-03-18] MEDS ORDERED: Lidocaine/Epinephrine 1% 1:100000 10 ML IJ ONE (14:10)
[2018-03-18] MEDS ORDERED: Neostigmine Methylsulfate 3mg/3ml Syringe IV ONE (15:33)
[2018-03-18] MEDS ORDERED: HYDROmorphone 0.5 mg/0.5 ml ISec IVP PRN ×3 (16:20→16:45)
[2018-03-18] MEDS ORDERED: Oxycodone/Acetaminophen 5/325 mg Tab PO PRN (16:45)
--- NOTE | 2018-03-18 16:45 | PCM.SURG1 ---
Surgeon's Initial Post Op Note - Surgeon's Notes Surgeon: Dr. Pena Configuration Management Specialist: Dr. Vincent PGY3, Dr. Dang PGY2, Jessica MS3 Pre-Operative Diagnosis: Acute Cholecystitis Operative Findings: See operative dictation Post-Operative Diagnosis: Acute Cholecystitis Operation Performed: Laparoscopic Cholecystectomy Specimen/Specimens Removed: Gallbladder Estimated Blood Loss: EBL {In ML}: 100 Blood Products Given: N/A Drains Used: No Drains Post-Op Condition: Good Date of Surgery/Procedure: 03/18/18 Time of Surgery/Procedure: 16:44
--- NOTE | 2018-03-18 17:48 | CP.PCM.HP ---
Past Patient History - Past Medical History & Family History Past Medical History?: Yes - Past Social History Smoking Status: Never Smoked - CARDIAC Hx Hypercholesterolemia: Yes Hx Hypertension: Yes - PULMONARY Hx Respiratory Disorders: No - NEUROLOGICAL Hx Neurological Disorder: No - HEENT Hx HEENT Problems: No - RENAL Hx Chronic Kidney Disease: No - ENDOCRINE/METABOLIC Hx Endocrine Disorders: No - HEMATOLOGICAL/ONCOLOGICAL Hx Blood Disorders: No - INTEGUMENTARY Hx Dermatological Problems: No - MUSCULOSKELETAL/RHEUMATOLOGICAL Hx Musculoskeletal Disorders: No Hx Falls: No - GASTROINTESTINAL Hx Gastrointestinal Disorders: No - GENITOURINARY/GYNECOLOGICAL Hx Genitourinary Disorders: No - PSYCHIATRIC Hx Psychophysiologic Disorder: No Hx Substance Use: No - SURGICAL HISTORY Hx Hysterectomy: Yes - ANESTHESIA Hx Anesthesia: Yes Hx Anesthesia Reactions: No Hx Malignant Hyperthermia: No Has any member of the family had a problem w/ anesthesia?: No Meds Allergies/Adverse Reactions: Allergies Allergy/AdvReac Type Severity Reaction Status Date / Time No Known Allergies Allergy Verified 03/17/18 14:00 Results - Vital Signs Recent Vital Signs: Last Vital Signs Temp 98.2 F 03/18/18 07:43 Pulse 72 03/18/18 07:43 Resp 20 03/18/18 07:43 BP 111/75 03/18/18 07:43 Pulse Ox 96 03/18/18 07:43 - Labs Result Diagrams: 03/18/18 07:25 03/18/18 07:25 Labs: Laboratory Results - last 24 hr 03/18/18 03/18/18 03/18/18 07:25 07:25 12:59 WBC 7.4 RBC 4.34 Hgb 13.0 Hct 38.2 MCV 88.0 MCH 30.0 MCHC 34.1 RDW 12.9 Plt Count 220 MPV 8.4 PT 12.7 H INR 1.2 APTT 30 Sodium 143 Potassium 4.2 Chloride 106 Carbon Dioxide 27 Anion Gap 15 BUN 13 Creatinine 0.8 Est GFR ( Amer) > 60 Est GFR (Non-Af Amer) > 60 Random Glucose 83 Calcium 8.6 Total Bilirubin 1.2 AST 21 ALT 29 Alkaline Phosphatase 77 Total Protein 5.9 L Albumin 3.2 L Globulin 2.7 Albumin/Globulin Ratio 1.2 Blood Type Antibody Screen 03/18/18 12:59 WBC RBC Hgb Hct MCV MCH MCHC RDW Plt Count MPV PT INR APTT Sodium Potassium Chloride Carbon Dioxide Anion Gap BUN Creatinine Est GFR ( Amer) Est GFR (Non-Af Amer) Random Glucose Calcium Total Bilirubin AST ALT Alkaline Phosphatase Total Protein Albumin Globulin Albumin/Globulin Ratio Blood Type O POSITIVE Antibody Screen Negative
[2018-03-19 00:22] VITALS: RESP 20
[2018-03-19] MEDS: Piperacill/Tazo 3.375gm in Dex 3.375 GM/50 ML BAG IVPB SCH ×3 (01:15→13:36)
[2018-03-19] MEDS: metroNIDAZOLE IV 500 mg/100 ml 500 MG/100 ML BAG IVPB SCH ×2 (03:20→11:54)
[2018-03-19] MEDS: Lactated Ringer's 1,000 ML IV SCH ×2 (03:21→13:26)
--- NOTE | 2018-03-19 03:40 | OP ---
PROCEDURE DATE: 03/18/2018 PREOPERATIVE DIAGNOSES: 1. Acute cholecystitis. 2. Cholelithiasis. POSTOPERATIVE DIAGNOSES: 1. Acute phlegmonous gangrenous cholecystitis. 2. Perihepatic and pericholecystic bilious fluid collection. 3. Extensive postinfectious and postinflammatory adhesion. PROCEDURES DONE: 1. Laparoscopic cholecystectomy. 2. Laparoscopic drainage of perihepatic and right upper quadrant fluid collection. 3. Laparoscopic extensive enterolysis and lysis of adhesion. SURGEON: The procedure was done by Heath falcon MD. CLUB FORMER: Christiano Vincent DO, PGY2 resident; and Juventino Dang DO, PGY2 resident. TYPE OF ANESTHESIA: General endotracheal tube anesthesia. ESTIMATED BLOOD LOSS: Around 100 mL. DRAINS: A 19-Korean Timothy drain was placed. COMPLICATIONS: None. INTRAOPERATIVE FINDINGS: The patient had acute on chronic phlegmonous gangrenous cholecystitis with extensive perihepatic and right upper quadrant bilious fluid collections, and the patient also had extensive inflammatory changes as well as adhesions due to large phlegmon of the omentum, colon, duodenum and the liver was completely lysed and lysis of adhesion as well as enterolysis was done. DESCRIPTION OF PROCEDURE: On intraoperative steps, this is a 67-year-old female, who was diagnosed with acute on chronic cholecystitis, and the patient was admitted in the emergency room with severe abdominal pain, and the patient was consented for laparoscopic cholecystectomy, possible open, brought to the OR, placed supine on the operating table. After induction of the anesthesia, the abdomen was prepped and draped in the usual sterile fashion. A supraumbilical transverse incision was made after incising the skin, subcutaneous tissue, and the fascia. The Imani port was placed. Pneumo was created. Another 12-mm port was placed in the midline below costal margin and two 5-mm ports were placed in the midclavicular and anterior axillary line. After that, grasper and dissector were introduced and the gallbladder appeared to be extremely thickened, edematous. There was a large phlegmon and the first lysis of adhesion was done. The omentum was dissected. The gallbladder was identified. The gallbladder was aspirated and the perihepatic and right upper quadrant fluid collection was suctioned out and suction-irrigation of the collection was done for the proper drainage. After that, the gallbladder was retracted cranially. Calot's triangle dissection was done. The cystic duct and cystic artery were identified and clipped at three places and cut in between two clips in the gallbladder and gallbladder was dissected free from the gallbladder fossa; taken in Endo Catch bag, taken out through the umbilical port site, and was sent off the table for pathology. There were extensive inflammatory changes due to the inflammation. Approximate blood loss was around 80 to 100 mL and the 19-Korean Timothy drain was placed. Proper hemostasis of the right upper quadrant as well as the gallbladder fossa was done and the drain was secured to the skin. All the ports were taken out under vision. The Pneumo was deflated. Umbilical port site was extended approximately 6 cm in size to remove the large size of the gallbladder and the gallbladder was sent off the table for pathology. The wound was closed in multiple layer, and the fascia and muscles with multiple 0 Vicryl interrupted suture, the subcu with 2-0 Vicryl, skin with 4-0 Monocryl, and dry sterile dressing was applied. The patient tolerated the procedure well. Count of the instrument and gauze was correct. There was no apparent complication. The patient was extubated in the OR and sent to the postanesthesia care unit in stable condition. Heath Pena MD
--- NOTE | 2018-03-19 07:25 | CP.PCM.PN ---
Addendum entered and electronically signed by Juventino Dang DO 03/19/18 11:33 : Clear for discharge from surgical standpoint Take Levaquin for 7 days Take percocet and colace as prescribed Let steri-strips fall off on own No heavy lifting for 4 weeks Patient to sponge until follow up with Dr. Pena Keep surgical areas clean and dry Drain will remain in place until office follow up Follow up with Dr. Pena within 1-[address] Pena regarding any issues Juventino Dang PGY2 Original Note: <Juventino Dang - Last Filed: 03/19/18 07:42> Subjective - Date & Time of Evaluation Date of Evaluation: 03/19/18 Time of Evaluation: 07:00 - Subjective Subjective: General Surgery Note for Dr. Pena Patient seen and examined at bedside. No acute event overnight. Patient is s/p laparoscopic cholecystectomy POD#1. Patient reports mild pain but is controlled with medications. She denies fever/chills and nausea/vomiting. Patient alos vanessa BM but passing flatus. She is tolerating liquid diet. Timothy drain with 10 cc of output since procedure. Objective - Vital Signs/Intake and Output Vital Signs (last 24 hours): Temp Pulse Resp BP Pulse Ox 98.7 F 82 20 97/61 L 99 03/19/18 00:20 03/19/18 00:20 03/19/18 00:20 03/19/18 00:20 03/19/18 00:20 Intake and Output: 03/19/18 03/19/18 06:59 18:59 Intake Total 900 Balance 900 - Medications Medications: Current Medications Acetaminophen (Tylenol 325mg Tab) 650 mg PO Q6 PRN PRN Reason: Fever >100.4 F Last Admin: 03/17/18 22:21 Dose: 650 mg Aspirin (Ecotrin) 81 mg PO DAILY ANASTACIA Enoxaparin Sodium (Lovenox) 40 mg SC DAILY ANASTACIA Escitalopram Oxalate (Lexapro) 10 mg PO DAILY ANASTACIA Last Admin: 03/18/18 10:15 Dose: 10 mg Hydromorphone HCl (Dilaudid) 0.5 mg IVP Q4H PRN PRN Reason: Pain, severe (8-10) Last Admin: 03/19/18 05:44 Dose: 0.5 mg Piperacillin Sod/Tazobactam Sod (Zosyn 3.375 Gm Iv Premix) 3.375 gm in 50 mls @ 100 mls/hr IVPB Q6H ANASTACIA PRN Reason: Protocol Last Admin: 03/19/18 01:15 Dose: 100 mls/hr Metronidazole (Flagyl) 500 mg in 100 mls @ 100 mls/hr IVPB Q8H ANASTACIA PRN Reason: Protocol Last Admin: 03/19/18 03:20 Dose: 100 mls/hr Lactated Ringer's (Lactated Ringer's) 1,000 mls @ 100 mls/hr IV .Q10H [facility] Last Admin: 03/19/18 03:21 Dose: 100 mls/hr Losartan Potassium (Cozaar) 12.5 mg PO DAILY [facility] Last Admin: 03/18/18 13:20 Dose: 12.5 mg [id number] Ethyl Esters (Lovaza) 1 gm PO BID [facility] Last Admin: 03/18/18 18:40 Dose: 1 gm Ondansetron HCl (Zofran Inj) 4 mg IVP DAILY@ONCE PRN PRN Reason: Nausea/Vomiting Oxycodone/Acetaminophen (Percocet 5/325 Mg Tab) 1 tab PO Q4H PRN PRN Reason: Pain, moderate (4-7) Stop: 03/21/18 16:46 Pneumococcal Polyvalent Vaccine (Pneumovax 23 Vaccine) 0.5 ml IM .ONCE ONE Stop: 03/19/18 10:01 Ranitidine HCl (Zantac Soln 5ml) 150 mg PO DAILY [facility] Last Admin: 03/18/18 10:15 Dose: 150 mg Rosuvastatin Calcium (Crestor) 5 mg PO HS [facility] Last Admin: 03/18/18 21:41 Dose: 5 mg - Labs Labs: 03/18/18 07:25 03/18/18 07:25 PT 12.7 SECONDS (9.7-12.2) H 03/18/18 12:59 INR 1.2 03/18/18 12:59 APTT 30 SECONDS (21-34) 03/18/18 12:59 - Constitutional Appears: No Acute Distress - Head Exam Head Exam: ATRAUMATIC, NORMOCEPHALIC - Eye Exam Eye Exam: EOMI, Normal appearance Pupil Exam: PERRL - ENT Exam ENT Exam: Mucous Membranes Moist - Respiratory Exam Respiratory Exam: NORMAL BREATHING PATTERN - Cardiovascular Exam Cardiovascular Exam: REGULAR RHYTHM - GI/Abdominal Exam GI & Abdominal Exam: Soft, Tenderness (surgical sites, mild). absent: Distended , Firm, Guarding, Rigid, Rebound Additional comments: timothy drain in place with 10 cc of output dressings clean dry and intact - Extremities Exam Extremities Exam: Normal Capillary Refill - Neurological Exam Neurological Exam: Alert, Awake, Oriented x3 - Psychiatric Exam Psychiatric exam: Normal Affect, Normal Mood - Skin Skin Exam: Dry, Intact, Warm Assessment and Plan - Assessment and Plan (Free Text) Assessment: 67F s/p laparoscopic cholecystectomy POD#1 Plan: -HHD -IV antibiotics -Analgesics/Anti-emetics PRN -PT -OOB to chair/Ambulation/IS -Further recommendations as per Dr. Becky Dang PGY2 <Heath Pena B - Last Filed: 03/21/18 19:36> Objective - Vital Signs/Intake and Output Vital Signs (last 24 hours): Temp Pulse Resp BP Pulse Ox 98.1 F 87 20 123/79 96 03/19/18 16:08 03/19/18 16:08 03/19/18 16:08 03/19/18 16:08 03/19/18 16:08 - Labs Labs: 03/19/18 11:09 03/19/18 11:05 PT 12.7 SECONDS (9.7-12.2) H 03/18/18 12:59 INR 1.2 03/18/18 12:59 APTT 30 SECONDS (21-34) 03/18/18 12:59 Attending/Attestation - Attestation I have fully participated in the care of the patient.: Yes I have reviewed all pertinent clinical information, including history, physical exam and plan: Yes Notes (Text): Pt is improving Can be DC home with PO antibiotics Local wound care f.u as out pt Plan d.w pt in detail
[2018-03-19] MEDS: Omega-3-Acid Ethyl Esters 1 GM Cap PO SCH (09:26)
[2018-03-19] MEDS: raNITIdine HCl 150 mg/10 ml Soln Cup PO SCH (09:27)
[2018-03-19] MEDS: Losartan 12.5 MG TAB PO SCH (09:27)
--- NOTE | 2018-03-19 09:29 | CP.PCM.PN ---
Subjective - Date & Time of Evaluation Date of Evaluation: 03/19/18 Time of Evaluation: 09:26 - Subjective Subjective: Progress Note for Dr. Altagracia Zuniga's Service Patient seen and examined at bedside. Per nursing no acute events occurred overnight. Patient ambulating without any problems and tolerating diet without complaints. Patient has yet to have a bowel movement but is passing gas. Patient reports only minor pain. Patient denies any chest pain, shortness of breath, fevers, chills, nausea, vomiting, or any other complaints. Objective - Vital Signs/Intake and Output Vital Signs (last 24 hours): Temp Pulse Resp BP Pulse Ox 98.7 F 80 20 103/67 97 03/19/18 07:50 03/19/18 07:50 03/19/18 07:50 03/19/18 07:50 03/19/18 07:50 Intake and Output: 03/19/18 03/19/18 06:59 18:59 Intake Total 1940 Output Total 50 Balance 1940 -50 - Medications Medications: Current Medications Acetaminophen (Tylenol 325mg Tab) 650 mg PO Q6 PRN PRN Reason: Fever >100.4 F Last Admin: 03/17/18 22:21 Dose: 650 mg Aspirin (Ecotrin) 81 mg PO DAILY [facility] Enoxaparin Sodium (Lovenox) 40 mg SC DAILY [facility] Escitalopram Oxalate (Lexapro) 10 mg PO DAILY [facility] Last Admin: 03/18/18 10:15 Dose: 10 mg Hydromorphone HCl (Dilaudid) 0.5 mg IVP Q4H PRN PRN Reason: Pain, severe (8-10) Last Admin: 03/19/18 05:44 Dose: 0.5 mg Piperacillin Sod/Tazobactam Sod (Zosyn 3.375 Gm Iv Premix) 3.375 gm in 50 mls @ 100 mls/hr IVPB Q6H [facility] PRN Reason: Protocol Last Admin: 03/19/18 07:50 Dose: 100 mls/hr Metronidazole (Flagyl) 500 mg in 100 mls @ 100 mls/hr IVPB Q8H ANASTACIA PRN Reason: Protocol Last Admin: 03/19/18 03:20 Dose: 100 mls/hr Lactated Ringer's (Lactated Ringer's) 1,000 mls @ 100 mls/hr IV .Q10H [facility] Last Admin: 03/19/18 03:21 Dose: 100 mls/hr Losartan Potassium (Cozaar) 12.5 mg PO DAILY [facility] Last Admin: 03/18/18 13:20 Dose: 12.5 mg [id number] Ethyl Esters (Lovaza) 1 gm PO BID [facility] Last Admin: 03/18/18 18:40 Dose: 1 gm Ondansetron HCl (Zofran Inj) 4 mg IVP DAILY@ONCE PRN PRN Reason: Nausea/Vomiting Oxycodone/Acetaminophen (Percocet 5/325 Mg Tab) 1 tab PO Q4H PRN PRN Reason: Pain, moderate (4-7) Stop: 03/21/18 16:46 Pneumococcal Polyvalent Vaccine (Pneumovax 23 Vaccine) 0.5 ml IM .ONCE ONE Stop: 03/19/18 10:01 Ranitidine HCl (Zantac Soln 5ml) 150 mg PO DAILY [facility] Last Admin: 03/18/18 10:15 Dose: 150 mg Rosuvastatin Calcium (Crestor) 5 mg PO HS [facility] Last Admin: 03/18/18 21:41 Dose: 5 mg - Labs Labs: 03/18/18 07:25 03/18/18 07:25 PT 12.7 SECONDS (9.7-12.2) H 03/18/18 12:59 INR 1.2 03/18/18 12:59 APTT 30 SECONDS (21-34) 03/18/18 12:59 - Head Exam Head Exam: ATRAUMATIC, NORMAL INSPECTION, NORMOCEPHALIC - Eye Exam Eye Exam: EOMI, Normal appearance, PERRL. absent: Periorbital tenderness Pupil Exam: NORMAL ACCOMODATION, PERRL. absent: Irregular, Unequal - ENT Exam ENT Exam: Mucous Membranes Moist, Normal Oropharynx - Respiratory Exam Respiratory Exam: Clear to Ausculation Bilateral, NORMAL BREATHING PATTERN. absent: Chest Wall Tenderness, Prolonged Expiratory Phase, Respiratory Distress - Cardiovascular Exam Cardiovascular Exam: REGULAR RHYTHM, +S1, +S2 - GI/Abdominal Exam GI & Abdominal Exam: Soft, Normal Bowel Sounds Additional comments: Drain in place s/p lab cholecystectomy. NO signs of erythema, swelling, discharge. - Extremities Exam Extremities Exam: absent: Pedal Edema - Back Exam Back Exam: NORMAL INSPECTION. absent: CVA tenderness (L), CVA tenderness (R), paraspinal tenderness - Neurological Exam Neurological Exam: Alert, Awake, CN II-XII Intact, Oriented x3 - Psychiatric Exam Psychiatric exam: Normal Affect, Normal Mood - Skin Skin Exam: Dry, Intact Assessment and Plan - Assessment and Plan (Free Text) Assessment: 67 year old female admitted for acute cholecystitis s/p Lap cholectomy POD#1 Plan: 1. Acute cholecystitis -s/p Lap cholectomy POD#1 -IV Metronidazole and Zosyn -Pain management. -Will f/u with Surgery for further rec's. PPX Lovenox Zantec Disposition: Patient clearned surgically for discharge with the following instructions. 1. F/U with PMD within one week of discharge. 2. F/u in Dr. Pena's office within 7-10 days of discharge. 3. F/u at Dr. Pena's office to have drain removed. 4. Let steri-strips fall off on own 5. No heavy lifting for 4 weeks 6.Keep surgical areas clean and dry 7.Drain will remain in place until office follow up Call Dr. Pena regarding any issues Medications: 1. Colace 100 mg PO Daily, #14, No refills 2. Percocet 5/325 mg PO q6 prn for severe pain,#10, No refills 3.Levaquin 750 mg PO Daily, #7, No refills Case discussed with Attending Dr. Altagracia Zuniga. Sabino Duffy, PGY-2
[2018-03-19] MEDS ORDERED: Pneumococcal 23-Valent Vaccine IM ONE (10:00)
[2018-03-19 11:16] LABS: HEMOGLOBIN 13.2 g/dL (11.0-16.0); MEAN CELL VOLUME 88.6 fL (81.0-99.0); MEAN CORPUSCULAR HEMOGLOBIN 29.9 pg (27.0-31.0); MEAN CORPUSCULAR HGB CONC 33.7 g/dL (33.0-37.0); MEAN PLATELET VOLUME 8.2 fL (7.2-11.7); RBC 4.41 Mil/uL (3.80-5.20); RED CELL DISTRIBUTION WIDTH 12.9 % (11.5-14.5)
[2018-03-19 11:36] LABS: ALB/GLOB RATIO 1.3 (1.0-2.1); ALBUMIN 3.5 g/dL (3.5-5.0); ALT/SGPT 72 U/L (9-52); AST/SGOT 100 U/L (14-36); BLOOD UREA NITROGEN 10 mg/dL (7-17); CALCIUM 8.8 mg/dl (8.6-10.4); GFR AFRICAN-AMERICAN > 60; GFR NON-AFRICAN AMERICAN > 60
[2018-03-19 16:10] VITALS: BP 123/79; PULSE 87; TEMP 98.1; O2SAT 96
== END 2018-03-19 16:44 | disposition home or self-care (01) | DRG 419 ==
LOC: C.ER 13:45 → C.9E 18:18 → C.3T 19:08
PROVIDERS: ADMIT Internal Medicine Nephrology; ATTEND Internal Medicine Nephrology
PROC: 0DNE4ZZ Release Large Intestine, Percutaneous Endoscopic Approach (ICD-10-PCS; 2018-03-18)
PROC: 0DN84ZZ Release Small Intestine, Percutaneous Endoscopic Approach (ICD-10-PCS; 2018-03-18)
PROC: 0FN04ZZ Release Liver, Percutaneous Endoscopic Approach (ICD-10-PCS; 2018-03-18)
PROC: 0W9F40Z Drainage of Abdominal Wall with Drainage Device, Percutaneous Endoscopic Approach (ICD-10-PCS; 2018-03-18)
PROC: 0FT44ZZ Resection of Gallbladder, Percutaneous Endoscopic Approach (ICD-10-PCS; principal; 2018-03-18 17:15)
DX: K80.00 Calculus of gallbladder with acute cholecystitis without obstruction (principal); K82.8 Other specified diseases of gallbladder; I10 Essential (primary) hypertension; E78.00 Pure hypercholesterolemia, unspecified